=== PATIENT | male | born 1950 | race Caucasian/White ===

== ENCOUNTER 2016-08-26 15:19 | Inpatient (IN) | payer OTHER ==
[~2016-08-26] VITALS: Ht 170.2 cm; Wt 92.7 kg
[2016-08-26 15:23] VITALS: BP 135/81; PULSE 85; RESP 15; TEMP 98.1; O2SAT 96
[2016-08-26] MEDS ORDERED: ASPI81CH CHEW (15:36)
[2016-08-26] MEDS ORDERED: LISI-515 PO (15:36)
[2016-08-26] MEDS ORDERED: LIPI80TA PO (15:36)
[2016-08-26] MEDS ORDERED: CARV12.52 PO (15:36)
[2016-08-26] MEDS ORDERED: SODIUM CHLOR 0.9% 1000 ML INJ 1,000 ML IV SCH (15:38)
[2016-08-26] MEDS ORDERED: SODIUM CHLORIDE 0.9% FLUSH 10 ML FLUSH IV FLUSH PRN ×2 (15:45→18:30)
[2016-08-26] MEDS ORDERED: ONDANSETRON HCL 4 MG/2 ML VIAL IVP ONE (15:45)
[2016-08-26] MEDS ORDERED: MORPHINE SULFATE 4 MG/ML INJ IV PUSH ONE (15:45)
--- NOTE | 2016-08-26 15:55 | PD ---
HPI Chief Complaint: Abdominal Pain Time Seen by Provider: 15:33 Travel History International Travel<30 days: No Contact w/Intl Traveler<30days: No Traveled to known affect area: No History of Present Illness HPI Patient is a 66-year-old male who presents to emergency with complaints of abdominal pain. Patient reports that he has been having increased lower abdominal pain since yesterday morning with a few episodes of n/v yesterday. Patient denies fevers or chills, reports that he did have an episode of nauseous and vomiting today though he reports overall decreased oral intake due to the pain. Patient reports that he has had history of diverticulitis in the past, reports that symptoms feel similar to that in the past. Reports that he did have a "small" bowel movement this morning. Patient reports that he has seen a GI doctor in the past and did have a colonscopy a few years ago which showed a polyp. Reports that he is due for another colonoscopy in October. PFSH Past Medical History High Cholesterol: Yes Hypertension: Yes ?: Not Past Surgical History Cardiac Surgery: Yes (OPEN HEART) Social History Alcohol Use: Yes Tobacco Use: No Substance Use: No Allergies-Medications (Allergen,Severity, Reaction): Coded Allergies: No Known Allergies (Unverified , 08/26/16) Reported Meds & Prescriptions Reported Meds & Active Scripts Active Reported Aspirin 81 Mg Chew 81 Mg CHEW DAILY Lipitor (Atorvastatin Calcium) 80 Mg Tab 80 Mg PO HS Carvedilol 12.5 Mg Tab 12.5 Mg PO BID Lisinopril 20 Mg Tab 20 Mg PO DAILY Review of Systems General / Constitutional: No: Fever Eyes: No: Visual changes HENT: No: Headaches Cardiovascular: No: Chest Pain or Discomfort Respiratory: No: Shortness of Breath Gastrointestinal: Positive: Nausea, Vomiting, Abdominal Pain, No: Diarrhea, Constipation Genitourinary: No: Dysuria Musculoskeletal: No: Pain Skin: No Rash Neurologic: No: Weakness Psychiatric: No: Depression Endocrine: No: Polydipsia Hematologic/Lymphatic: No: Easy Bruising Physical Exam Narrative GENERAL: NAD, nontoxic SKIN: Focused skin assessment warm/dry. HEAD: Atraumatic. Normocephalic. EYES: Pupils equal and round. No scleral icterus. No injection or drainage. ENT: No nasal bleeding or discharge. Mucous membranes pink and moist. NECK: Trachea midline. No JVD. CARDIOVASCULAR: Regular rate and rhythm. No murmur appreciated. RESPIRATORY: No accessory muscle use. Clear to auscultation. Breath sounds equal bilaterally. GASTROINTESTINAL: Abdomen soft, tenderness to lower abdomen with no rebound or guarding MUSCULOSKELETAL: No obvious deformities. No clubbing. No cyanosis. No edema. NEUROLOGICAL: Awake and alert. No obvious cranial nerve deficits. Motor grossly within normal limits. Normal speech. PSYCHIATRIC: Appropriate mood and affect; insight and judgment normal. Data Data Last Documented VS Vital Signs Date Time Temp Pulse Resp B/P Pulse Ox O2 Delivery O2 Flow Rate FiO2 08/26/16 16:50 69 20 107/68 97 08/26/16 15:23 98.1 Orders Complete Blood Count With Diff (08/26/16 15:38) Comprehensive Metabolic Panel (08/26/16 15:38) Lipase (08/26/16 15:38) Prothrombin Time / Inr (Pt) (08/26/16 15:38) Act Partial Throm Time (Ptt) (08/26/16 15:38) Urinalysis - C+S If Indicated (08/26/16 15:38) Ct Abd/Pel W Iv Contrast(Rout) (08/26/16 15:38) Iv Access Insert/Monitor (08/26/16 15:38) Morphine Inj (Morphine Inj) (08/26/16 15:45) Ondansetron Inj (Zofran Inj) (08/26/16 15:45) Sodium Chlor 0.9% 1000 Ml Inj (Ns 1000 M (08/26/16 15:38) Sodium Chloride 0.9% Flush (Ns Flush) (08/26/16 15:45) Iohexol 350 Inj (Omnipaque 350 Inj) (08/26/16 16:41) Labs Laboratory Tests Test 08/26/16 15:45 White Blood Count 9.5 TH/MM3 Red Blood Count 5.33 MIL/MM3 Hemoglobin 15.8 GM/DL Hematocrit 48.1 % Mean Corpuscular Volume 90.3 FL Mean Corpuscular Hemoglobin 29.6 PG Mean Corpuscular Hemoglobin 32.8 % Concent Red Cell Distribution Width 11.9 % Platelet Count 179 TH/MM3 Mean Platelet Volume 8.5 FL Neutrophils (%) (Auto) 75.1 % Lymphocytes (%) (Auto) 15.5 % Monocytes (%) (Auto) 8.2 % Eosinophils (%) (Auto) 0.3 % Basophils (%) (Auto) 0.9 % Neutrophils # (Auto) 7.1 TH/MM3 Lymphocytes # (Auto) 1.5 TH/MM3 Monocytes # (Auto) 0.8 TH/MM3 Eosinophils # (Auto) 0.0 TH/MM3 Basophils # (Auto) 0.1 TH/MM3 CBC Comment DIFF FINAL Differential Comment Prothrombin Time 11.1 SEC Prothromb Time International 1.0 RATIO Ratio Activated Partial 26.2 SEC Thromboplast Time Urine Collection Type CLEAN CATCH Urine Color DARK-YELLOW Urine Turbidity CLEAR Urine pH 5.5 Urine Specific [place] 1.035 Urine Protein 30 mg/dL Urine Glucose (UA) 1000 OR GREATER mg/dL Urine Ketones 15 mg/dL Urine Occult Blood NEG Urine Nitrite NEG Urine Bilirubin NEG Urine Leukocyte Esterase NEG Urine WBC 0-2 /hpf Microscopic Urinalysis Comment CULT NOT INDICATED Sodium Level 134 MEQ/L Potassium Level 4.3 MEQ/L Chloride Level 99 MEQ/L Carbon Dioxide Level 23.3 MEQ/L Anion Gap 12 MEQ/L Blood Urea Nitrogen 23 MG/DL Creatinine 0.88 MG/DL Estimat Glomerular Filtration 87 ML/MIN Rate Random Glucose 268 MG/DL Calcium Level 9.5 MG/DL Total Bilirubin 1.1 MG/DL Aspartate Amino Transf 12 U/L (AST/SGOT) Alanine Aminotransferase 28 U/L (ALT/SGPT) Alkaline Phosphatase 39 U/L Total Protein 7.3 GM/DL Albumin 3.6 GM/DL Lipase 152 U/L [facility] Medical Decision Making Medical Screen Exam Complete: Yes Emergency Medical Condition: Yes Interpretation(s) Vital Signs Date Time Temp Pulse Resp B/P Pulse Ox O2 Delivery O2 Flow Rate FiO2 08/26/16 15:23 98.1 85 15 135/81 96 Differential Diagnosis Diverticulitis, colitis, gastroenteritis, UTI, appendicitis Narrative Course Patient is a 66-year-old male who presents to emergency room with complaints of lower abdominal pain which started yesterday morning. Patient reports that since yesterday morning, he has had increased lower abdominal pain and cramping , reports no fevers or chills, patient reports that he did have a normal bowel movement today. Patient reports that he did have an episode of nausea and vomiting prior to coming to the emergency room, reports history of diverticulitis in the remote past. Patient reports that he has had overall decreased oral intake for the past 48 hours secondary to this pain. Labs as well as CT of the abdomen and pelvis ordered. Plan to hydrate patient and give pain medications as well as antiemetics. Laboratory Tests Test 08/26/16 15:45 White Blood Count 9.5 TH/MM3 (4.0-11.0) Red Blood Count 5.33 MIL/MM3 (4.50-5.90) Hemoglobin 15.8 GM/DL (13.0-17.0) Hematocrit 48.1 % (39.0-51.0) Mean Corpuscular Volume 90.3 FL (80.0-100.0) Mean Corpuscular Hemoglobin 29.6 PG (27.0-34.0) Mean Corpuscular Hemoglobin 32.8 % Concent (32.0-36.0) Red Cell Distribution Width 11.9 % (11.6-17.2) Platelet Count 179 TH/MM3 (150-450) Mean Platelet Volume 8.5 FL (7.0-11.0) Neutrophils (%) (Auto) 75.1 % (16.0-70.0) Lymphocytes (%) (Auto) 15.5 % (9.0-44.0) Monocytes (%) (Auto) 8.2 % (0.0-8.0) Eosinophils (%) (Auto) 0.3 % (0.0-4.0) Basophils (%) (Auto) 0.9 % (0.0-2.0) Neutrophils # (Auto) 7.1 TH/MM3 (1.8-7.7) Lymphocytes # (Auto) 1.5 TH/MM3 (1.0-4.8) Monocytes # (Auto) 0.8 TH/MM3 (0-0.9) Eosinophils # (Auto) 0.0 TH/MM3 (0-0.4) Basophils # (Auto) 0.1 TH/MM3 (0-0.2) CBC Comment DIFF FINAL Differential Comment Prothrombin Time 11.1 SEC (9.8-11.6) Prothromb Time International 1.0 RATIO Ratio Activated Partial 26.2 SEC Thromboplast Time (24.3-30.1) Urine Collection Type CLEAN CATCH Urine Color DARK-YELLOW (YELLW/STRAW) Urine Turbidity CLEAR (CLEAR) Urine pH 5.5 (5.0-8.5) Urine Specific [place] 1.035 (1.002-1.035) Urine Protein 30 mg/dL (NEG-TRACE) Urine Glucose (UA) 1000 OR GREATER mg/dL (NEG) Urine Ketones 15 mg/dL (NEG) Urine Occult Blood NEG (NEG) Urine Nitrite NEG (NEG) Urine Bilirubin NEG (NEG) Urine Leukocyte Esterase NEG (NEG) Urine WBC 0-2 /hpf (0-5) Microscopic Urinalysis Comment CULT NOT INDICATED Sodium Level 134 MEQ/L (136-145) Potassium Level 4.3 MEQ/L (3.5-5.1) Chloride Level 99 MEQ/L (98-107) Carbon Dioxide Level 23.3 MEQ/L (21.0-32.0) Anion Gap 12 MEQ/L (5-15) Blood Urea Nitrogen 23 MG/DL (7-18) Creatinine 0.88 MG/DL (0.60-1.30) Estimat Glomerular Filtration 87 ML/MIN (>89) Rate Random Glucose 268 MG/DL (74-106) Calcium Level 9.5 MG/DL (8.5-10.1) Total Bilirubin 1.1 MG/DL (0.2-1.0) Aspartate Amino Transf 12 U/L (15-37) (AST/SGOT) Alanine Aminotransferase 28 U/L (12-78) (ALT/SGPT) Alkaline Phosphatase 39 U/L (45-117) Total Protein 7.3 GM/DL (6.4-8.2) Albumin 3.6 GM/DL (3.4-5.0) Lipase 152 U/L (73-393) wbc: 9.5 Hemoglobin 15.8 Hematocrit 48.1 Platelets 179 Sodium 134 Chloride 99 Potassium 4.3 BUN 23 Creatinine 0.88 Glucose 268 ua: glucose: 1000 or greater ketones: 15 pt with no hx of diabetes, reviewed with patient his elevated blood sugar as well as glucosuria. reports that he was home and had blood work done and reports "My doctor's called me about abnormal labs, I haven't been able to get a hold of them yet, it must have been my high blood sugars because diabetes runs in the family." Last Impressions Abdomen/Pelvis CT 08/26/16 9645 Signed Impressions: Service Date/Time: Friday, August 26, 2016 16:32 - CONCLUSION: 1. Findings are suspicious for small bowel obstruction. There is a transition in diameter which occurs in the lower or right lower quadrant. 2. Gallstones. 3. Bilateral large inguinal hernias. The free fluid extends into the right inguinal hernia. Ricardo Thao MD Patient denies hx of abdominal surgeries in the past, he does admit to having a small bowel movement this morning - reports that he normally has a few BM's per day. CT with suspicion for small bowel obstruction. NGT was not placed as patient is comfortable with no nausea or vomiting in ER. Call made to general surgery to review case Case reviewed with Dr. Herrera, patient with low risk for SBO as pt has never had general surgery to bowels in the past, patient with most like ileus. Plan to keep patient at [facility] for obs for monitoring. If patient progresses to n/v and worsening symptoms consistent with obstruction - will transfer to [facility] main case reviewed with dr. haile who accepts pt to service for obs Diagnosis Primary Impression: Abdominal pain Qualified Code: R10.30 - Lower abdominal pain Additional Impressions: Hyperglycemia Ileus, unspecified Admitting Information Admitting Physician Requests: Observation Patient Instructions: General Instructions, Narcotic given in the ED Additional Instructions: Please provide patient with a copy of his lab work and studies at discharge Please bring the copy of your lab work and studies to your doctor's office for follow up on all findings from today Please follow up with your primary care doctor in 2-3 days Your blood sugar was elevated today, please follow up with your primary care doctor as soon as possible for this Eleanor Lopes DO Aug 26, 2016 15:55
[2016-08-26 15:59] VITALS: BP 108/72; PULSE 98; RESP 20; O2SAT 98
[2016-08-26 16:05] LABS: AUTOMATED NEUTROPHIL # 7.1 TH/MM3 (1.8-7.7); BASOPHIL # 0.1 TH/MM3 (0-0.2); BASOPHIL % 0.9 % (0.0-2.0); EOSINOPHIL % 0.3 % (0.0-4.0); HEMATOCRIT 48.1 % (39.0-51.0); HEMO FLAGS DIFF FINAL; LYMPH % 15.5 % (9.0-44.0); LYMPHOCYTE # 1.5 TH/MM3 (1.0-4.8); MEAN CELL VOLUME 90.3 FL (80.0-100.0); MEAN CORPUSCULAR HEMOGLOBIN 29.6 PG (27.0-34.0); MEAN CORPUSCULAR HGB CONC 32.8 % (32.0-36.0); MONO % 8.2 % (0.0-8.0); NEUT % 75.1 % (16.0-70.0); PLATELET COUNT 179 TH/MM3 (150-450); RED BLOOD COUNT 5.33 MIL/MM3 (4.50-5.90); RED CELL DISTRIBUTION WIDTH 11.9 % (11.6-17.2); WHITE BLOOD COUNT 9.5 TH/MM3 (4.0-11.0)
[2016-08-26 16:12] LABS: CHLORIDE 99 MEQ/L (98-107); POTASSIUM 4.3 MEQ/L (3.5-5.1); SODIUM (NA) 134 MEQ/L (136-145)
[2016-08-26 16:13] LABS: BLOOD, URINE NEG (NEG); KETONE, URINE 15 mg/dL (NEG); NITRITE,URINE NEG (NEG); PH, URINE 5.5 (5.0-8.5)
[2016-08-26 16:16] LABS: APTT (PATIENT) 26.2 SEC (24.3-30.1); GLUCOSE,URINE 1000 OR GREATER mg/dL (NEG); PROTHROMBIN TIME - PATIENT 11.1 SEC (9.8-11.6)
[2016-08-26 16:17] LABS: ANION GAP 12 MEQ/L (5-15); BICARBONATE 23.3 MEQ/L (21.0-32.0); BLOOD UREA NITROGEN 23 MG/DL (7-18); METHOD OF COLLECTION CLEAN CATCH; URINE COLOR DARK-YELLOW (YELLW/STRAW)
[2016-08-26 16:18] LABS: COMMENT (UR) CULT NOT INDICATED; COMMENT2 (UR) MUCOUS PRESENT; CULTURE IF INDICATED CULT NOT INDICATED; WBC, URINE 0-2 /hpf (0-5)
[2016-08-26 16:20] LABS: ALT (GPT) 28 U/L (12-78); AST (GOT) 12 U/L (15-37); GLOMERULAR FILTRATION RATE 87 ML/MIN (>89)
[2016-08-26 16:21] LABS: TOTAL BILIRUBIN ADULT 1.1 MG/DL (0.2-1.0)
[2016-08-26 16:22] LABS: ALKALINE PHOSPHATASE 39 U/L (45-117)
[2016-08-26] MEDS ORDERED: IOHEXOL 350 MG/ML 10 ML VIAL (for RAD DIAG) IV ONE (16:41)
[2016-08-26 16:50] VITALS: BP 107/68; PULSE 69; RESP 20; O2SAT 97
--- NOTE | 2016-08-26 17:45 | RADHPO ---
EXAM DATE/TIME: 08/26/2016 16:32 [facility] COMPARISON: No previous studies available for comparison. INDICATIONS : Lower abdomen pain with nausea. IV CONTRAST: 95 cc Omnipaque 350 (iohexol) IV ORAL CONTRAST: No oral contrast ingested. RADIATION DOSE: 17.75 CTDIvol (mGy) MEDICAL HISTORY : Cardiovascular disease. Hypertension. SURGICAL HISTORY : CABG ENCOUNTER: Initial ACUITY: 1 day PAIN SCALE: 5/10 LOCATION: Bilateral low abdomen TECHNIQUE: Volumetric scanning of the abdomen and pelvis was performed. Using automated exposure control and ad justment of the mA and/or kV according to patient size, radiation dose was kept as low as reasonably achievable to obtain optimal diagnostic quality images. FINDINGS: LOWER LUNGS: The visualized lower lungs are clear. LIVER: There are multiple subcentimeter low density round lesions throughout left and right lobe of the live r characteristic of cysts. Multiple calcified gallstones. No dilation of the intra-extrahepatic earlene iary system. SPLEEN: Normal size without lesion. PANCREAS: Within normal limits. KIDNEYS: Normal in size and shape. There is no mass, stone or hydronephrosis. 2.1 cm cyst upper pole right k idney. No calcified stones. ADRENAL GLANDS: Within normal limits. VASCULAR: There is no aortic aneurysm. BOWEL/MESENTERY: Abnormal. There are multiple dilated loops of proximal and mid small bowel which measure up to 3.2 c m in thickness. The distal small bowel is not dilated. There are a few air-fluid levels, but most o f the dilated loops of small bowel are fluid-filled. The transition from dilated to nondilated loops occurs somewhere in the right lower quadrant, a specific transition point cannot be reliably identif ied. There are numerous diverticula throughout the entire colon. No radiographic evidence of divert iculitis. The there is a minimal amount of free fluid about the liver and spleen and a moderate amou nt of free fluid seen in the lower abdomen and pelvis. The free fluid extends into the right inguina l hernia. ABDOMINAL WALL: Within normal limits. RETROPERITONEUM: There is no lymphadenopathy. BLADDER: No wall thickening or mass. REPRODUCTIVE: Within normal limits. INGUINAL: There are bilateral inguinal hernias which are moderate in size. The superior inferior dimension of both inguinal hernias is in excess of 7 cm. The free fluid extends into the right hernia sac. There several loops of nondistended small bowel near the orifice of the right hernia, but did not extend i nto the hernia. MUSCULOSKELETAL: Within normal limits for patient age. CONCLUSION: 1. Findings are suspicious for small bowel obstruction. There is a transition in diameter which occu rs in the lower or right lower quadrant. 2. Gallstones. 3. Bilateral large inguinal hernias. The free fluid extends into the right inguinal hernia. Ricardo Thao MD on August 26, 2016 at 17:34 Board Certified Radiologist. This report was verified electronically.
[2016-08-26] MEDS ORDERED: MAGNESIUM HYDROXIDE SUSP 30 ML CUP PO PRN (18:30)
[2016-08-26] MEDS ORDERED: ACETAMINOPHEN 325 MG TAB PO PRN (18:30)
[2016-08-26] MEDS ORDERED: NALOXONE HCL 0.4 MG/ML AMP IV PRN (18:30)
[2016-08-26] MEDS: SODIUM CHLOR 0.9% 1000 ML INJ 1,000 ML IV SCH (19:08)
[2016-08-26 19:20] VITALS: BP 103/61; PULSE 64; RESP 18; TEMP 97.6; O2SAT 98
[2016-08-26] MEDS: MORPHINE SULFATE 4 MG/ML INJ IV PUSH PRN ×2 (19:47→23:07)
[2016-08-26] MEDS: ONDANSETRON HCL 4 MG/2 ML VIAL IVP PRN (19:53)
[2016-08-26 20:35] VITALS: BP 113/73
[2016-08-26 20:40] VITALS: BP 144/78; PULSE 57; RESP 20; TEMP 96.8; O2SAT 98
[2016-08-26] MEDS: SODIUM CHLORIDE 0.9% FLUSH 10 ML FLUSH IV FLUSH SCH (21:00)
[2016-08-26] MEDS: TEMAZEPAM 15 MG CAP PO PRN (23:07)
[2016-08-27 00:35] VITALS: BP 107/73; PULSE 57; RESP 18; TEMP 98; O2SAT 96
[2016-08-27] MEDS: SODIUM CHLOR 0.9% 1000 ML INJ 1,000 ML IV SCH ×2 (05:01→12:27)
[2016-08-27] MEDS: ONDANSETRON HCL 4 MG/2 ML VIAL IVP PRN ×2 (05:14→12:26)
[2016-08-27] MEDS: MORPHINE SULFATE 4 MG/ML INJ IV PUSH PRN ×2 (05:15→12:27)
[2016-08-27 07:25] LABS: AUTOMATED NEUTROPHIL # 5.5 TH/MM3 (1.8-7.7); BASOPHIL % 0.1 % (0.0-2.0); EOSINOPHIL # 0.1 TH/MM3 (0-0.4); EOSINOPHIL % 1.1 % (0.0-4.0); HEMO FLAGS DIFF FINAL; LYMPH % 15.4 % (9.0-44.0); LYMPHOCYTE # 1.2 TH/MM3 (1.0-4.8); MEAN CELL VOLUME 90.5 FL (80.0-100.0); MEAN CORPUSCULAR HEMOGLOBIN 30.1 PG (27.0-34.0); MEAN CORPUSCULAR HGB CONC 33.3 % (32.0-36.0); MONO % 10.9 % (0.0-8.0); NEUT % 72.5 % (16.0-70.0); PLATELET COUNT 135 TH/MM3 (150-450); RED BLOOD COUNT 4.86 MIL/MM3 (4.50-5.90); RED CELL DISTRIBUTION WIDTH 11.9 % (11.6-17.2); WHITE BLOOD COUNT 7.6 TH/MM3 (4.0-11.0)
[2016-08-27 07:34] LABS: POTASSIUM 3.9 MEQ/L (3.5-5.1)
[2016-08-27 07:53] LABS: BICARBONATE 25.6 MEQ/L (21.0-32.0)
[2016-08-27 08:00] VITALS: BP 125/84; PULSE 55; RESP 20; TEMP 96.5; O2SAT 98
--- NOTE | 2016-08-27 08:10 | HHI.HP ---
[facility] Non-Staff Admission Diagnosis Ileus Diagnoses: Chief Complaint: Lower abdominal pain, nausea, vomiting. Travel History International Travel<30 Days: No Contact w/Intl Traveler <30 Da: No Traveled to Known Affected Are: No History of Present Illness Mr. Nix is a pleasant 66 year old male with a history of CABG who presented to the ED on 08/26/2016 due to lower abdominal pain, nausea, vomiting that started on 08/24/2016 AM. Patient could not eat anything. He had coffee and water but he had nausea and vomiting. He denies having any fever, chills. He had small bowel movements which is not typical for him. night he passed gas but he has not passed gas since then. Yesterday he had a small bowel movement as well. He continues to have lower abdominal pain and no flatus. Today, he is able to keep small amount of water down. Denies any bladder habit changes. No chest pain, cough, shortness of breath, fever, chills. Review of Systems Except as stated in HPI: all other systems reviewed are Neg Past Family Social History Past Medical History CAD s/p CABG in 2007 Past Surgical History CABG in 2007 Cardiac stent 2011 Colonoscopy - last one in 2011 Reported Medications Aspirin 81 Mg Chew 81 Mg CHEW DAILY Lipitor (Atorvastatin Calcium) 80 Mg Tab 80 Mg PO HS Carvedilol 12.5 Mg Tab 12.5 Mg PO BID Lisinopril 20 Mg Tab 20 Mg PO DAILY Allergies: Coded Allergies: No Known Allergies (Unverified , 08/26/16) Family History Father - Diabetes. Social History Used to smoke before CABG in 2007, drinks alcohol occasionally. Physical Exam Vital Signs Vital Signs Date Time Temp Pulse Resp B/P Pulse Ox O2 Delivery O2 Flow Rate FiO2 08/27/16 05:20 18 08/27/16 00:35 98.0 57 18 107/73 96 08/26/16 20:40 96.8 57 20 144/78 98 08/26/16 20:35 65 18 113/73 97 08/26/16 19:20 97.6 64 18 103/61 98 Room Air 08/26/16 16:50 69 20 107/68 97 08/26/16 15:59 98 20 108/72 98 08/26/16 15:23 98.1 85 15 135/81 96 Physical Exam GENERAL: This is a well-nourished, well-developed patient, in no apparent distress. SKIN: No rashes, ecchymoses or lesions. Warm and dry. HEAD: Atraumatic. Normocephalic. No temporal or scalp tenderness. EYES: Pupils equal round and reactive. No injection or drainage. ENT: Nose without bleeding, purulent drainage or septal hematoma. Airway patent. NECK: Trachea midline. No lymphadenopathy. Supple, nontender, no meningeal signs. CARDIOVASCULAR: Regular rate and rhythm without murmurs, gallops, or rubs. No JVD. RESPIRATORY: Clear to auscultation. Breath sounds equal bilaterally. No wheezes , rales, or rhonchi. GASTROINTESTINAL: Abdomen distended, tender to palpation over the lower abdomen , hypoactive bowel sounds. MUSCULOSKELETAL: Extremities without clubbing, cyanosis, or edema. NEUROLOGICAL: Awake and alert. Cranial nerves II through XII intact. No focal neurological deficits. Normal speech. Laboratory Laboratory Tests Test 08/26/16 08/27/16 15:45 06:36 White Blood Count 9.5 7.6 Red Blood Count 5.33 4.86 Hemoglobin 15.8 14.7 Hematocrit 48.1 44.0 Mean Corpuscular Volume 90.3 90.5 Mean Corpuscular Hemoglobin 29.6 30.1 Mean Corpuscular Hemoglobin 32.8 33.3 Concent Red Cell Distribution Width 11.9 11.9 Platelet Count 179 135 Mean Platelet Volume 8.5 8.3 Neutrophils (%) (Auto) 75.1 72.5 Lymphocytes (%) (Auto) 15.5 15.4 Monocytes (%) (Auto) 8.2 10.9 Eosinophils (%) (Auto) 0.3 1.1 Basophils (%) (Auto) 0.9 0.1 Neutrophils # (Auto) 7.1 5.5 Lymphocytes # (Auto) 1.5 1.2 Monocytes # (Auto) 0.8 0.8 Eosinophils # (Auto) 0.0 0.1 Basophils # (Auto) 0.1 0.0 CBC Comment DIFF FINAL DIFF FINAL Differential Comment Prothrombin Time 11.1 Prothromb Time International 1.0 Ratio Activated Partial 26.2 Thromboplast Time Urine Collection Type CLEAN CATCH Urine Color DARK-YELLOW Urine Turbidity CLEAR Urine pH 5.5 Urine Specific [place] 1.035 Urine Protein 30 Urine Glucose (UA) 1000 OR GREATER Urine Ketones 15 Urine Occult Blood NEG Urine Nitrite NEG Urine Bilirubin NEG Urine Leukocyte Esterase NEG Urine WBC 0-2 Microscopic Urinalysis Comment CULT NOT INDICATED Sodium Level 134 136 Potassium Level 4.3 3.9 Chloride Level 99 103 Carbon Dioxide Level 23.3 25.6 Anion Gap 12 7 Blood Urea Nitrogen 23 21 Creatinine 0.88 0.66 Estimat Glomerular Filtration 87 122 Rate Random Glucose 268 192 Calcium Level 9.5 8.4 Total Bilirubin 1.1 Aspartate Amino Transf 12 (AST/SGOT) Alanine Aminotransferase 28 (ALT/SGPT) Alkaline Phosphatase 39 Total Protein 7.3 Albumin 3.6 Lipase 152 Result Diagram: 08/27/16 0636 08/27/16 0636 Imaging Last Impressions Abdomen/Pelvis CT 08/26/16 1538 Signed Impressions: Service Date/Time: Friday, August 26, 2016 16:32 - CONCLUSION: 1. Findings are suspicious for small bowel obstruction. There is a transition in diameter which occurs in the lower or right lower quadrant. 2. Gallstones. 3. Bilateral large inguinal hernias. The free fluid extends into the right inguinal hernia. Ricardo Thao MD Assessment and Plan Problem List: (1) Small bowel obstruction ICD Code: K56.69 Status: Acute (2) CAD (coronary artery disease) ICD Code: I25.10 Status: Acute (3) Hyperlipidemia ICD Code: E78.5 Status: Acute Assessment and Plan Mr. Nix is a pleasant 66 year old male with a history of CAD s/p CABG who presents to the ED on 08/26/2016 due to lower abdominal pain, nausea, vomiting. CT abd/pelvis indicated possible SBO. - Possible small bowel obstruction - Will continue IV fluid at 100cc/hour. - Morphine for pain - General surgery was contacted by ED. Non-operative management for now. - If patient has further N/V, we may need to insert NG tube. - CAD s/p CABG, stent placement. - Hyperlipidemia - Hypertension - Continue Aspirin 81mg, Lisinopril 20mg Qday, Carvedilol 12.5mg BID, Lipitor 80mg QHS. - Hyperglycemia - Patient is not on any diabetic medications. - Will get HbA1C - Start Levemir 5 units QHS and sliding scale insulin. Full code. SCDs. Will consider Lovenox if patient remains in the hospital for more than 48 hours. Elmer Bunch DO Aug 27, 2016 8:10 am
[2016-08-27] MEDS: SODIUM CHLORIDE 0.9% FLUSH 10 ML FLUSH IV FLUSH SCH ×2 (08:44→19:40)
[2016-08-27 12:00] VITALS: BP 127/79; PULSE 69; RESP 20; TEMP 97.1; O2SAT 96
[2016-08-27] MEDS ORDERED: DEXTROSE 50% IN WATER 50 ML VIAL(D50) IV PUSH PRN (12:45)
[2016-08-27] MEDS ORDERED: GLUCAGON 1 MG/ML VIAL OTHER PRN (12:45)
[2016-08-27 16:00] VITALS: BP 131/70; PULSE 61; RESP 20; TEMP 97.5; O2SAT 98
[2016-08-27] MEDS: INSULIN ASPART SUPPLEMENTAL SCALE SQ SCH ×2 (16:13→21:00)
[2016-08-27 20:00] VITALS: BP 120/80; PULSE 67; RESP 18; TEMP 97.3; O2SAT 96
[2016-08-27] MEDS ORDERED: INSULIN DETEMIR 100 UNITS/ML VIAL SQ SCH (21:00)
[2016-08-27] MEDS: ATORVASTATIN 40 MG TAB PO SCH (22:01)
[2016-08-27] MEDS: CARVEDILOL 12.5 MG TAB PO SCH (22:01)
[2016-08-28] VITALS: BP 137/82; PULSE 70; RESP 18; TEMP 99.5; O2SAT 96
[2016-08-28] MEDS: SODIUM CHLOR 0.9% 1000 ML INJ 1,000 ML IV SCH ×4 (00:16→21:07)
[2016-08-28] MEDS: ONDANSETRON HCL 4 MG/2 ML VIAL IVP PRN (01:27)
[2016-08-28] MEDS: INSULIN ASPART SUPPLEMENTAL SCALE SQ SCH ×4 (05:46→21:00)
[2016-08-28 08:00] VITALS: BP 138/81; PULSE 65; RESP 18; TEMP 98.1; O2SAT 96
[2016-08-28] MEDS: ASPIRIN 81 MG CHEW TAB CHEW SCH (09:00)
[2016-08-28] MEDS: LISINOPRIL 20 MG TAB PO SCH (09:00)
[2016-08-28] MEDS: CARVEDILOL 12.5 MG TAB PO SCH ×2 (09:00→21:07)
--- NOTE | 2016-08-28 10:13 | HHI.PR ---
Subjective Remarks Follow up for small bowel obstruction. Patient reports persistent abdominal pain. He also started to have nausea, vomiting since last night. No fever, chills. Objective Vitals Vital Signs Date Time Temp Pulse Resp B/P Pulse Ox O2 Delivery O2 Flow Rate FiO2 08/28/16 00:00 99.5 70 18 137/82 96 08/27/16 20:00 97.3 67 18 120/80 96 08/27/16 16:00 97.5 61 20 131/70 98 08/27/16 12:00 97.1 69 20 127/79 96 I/O 08/27/16 08/27/16 08/27/16 08/28/16 08/28/16 08/28/16 07:00 15:00 23:00 07:00 15:00 23:00 Intake Total 0 ml 240 ml 3627 ml Balance 0 ml 240 ml 3627 ml Intake Oral 0 ml 240 ml 240 ml IV Total 3387 ml # Voids 1 1 2 2 # Bowel Movements 0 0 Result Diagram: 08/27/16 0636 08/27/16 0636 Imaging Last Impressions Abdomen/Pelvis CT 08/26/16 1538 Signed Impressions: Service Date/Time: Friday, August 26, 2016 16:32 - CONCLUSION: 1. Findings are suspicious for small bowel obstruction. There is a transition in diameter which occurs in the lower or right lower quadrant. 2. Gallstones. 3. Bilateral large inguinal hernias. The free fluid extends into the right inguinal hernia. Ricardo Thao MD Objective Remarks GENERAL: Alert, NAD. SKIN: Warm and dry. HEAD: Normocephalic. EYES: No scleral icterus. No injection or drainage. NECK: Supple, trachea midline. No JVD or lymphadenopathy. CARDIOVASCULAR: Regular rate and rhythm without murmurs, gallops, or rubs. RESPIRATORY: Breath sounds equal bilaterally. No accessory muscle use. GASTROINTESTINAL: Abdomen soft, Tender to palpation, nondistended. MUSCULOSKELETAL: No cyanosis, or edema. BACK: Nontender without obvious deformity. No CVA tenderness. Procedures None. A/P Problem List: (1) Small bowel obstruction ICD Code: K56.69 Status: Acute (2) CAD (coronary artery disease) ICD Code: I25.10 Status: Acute (3) Hyperlipidemia ICD Code: E78.5 Status: Acute Assessment and Plan Mr. Nix is a pleasant 66 year old male with a history of CAD s/p CABG who presents to the ED on 08/26/2016 due to lower abdominal pain, nausea, vomiting. CT abd/pelvis indicated possible SBO. - Possible small bowel obstruction - Will continue IV fluid at 100cc/hour. - Morphine for pain - General surgery was contacted by ED. Non-operative management for now. - Patient is having N/V, we will insert NG tube and put it on intermittent suction. - CAD s/p CABG, stent placement. - Hyperlipidemia - Hypertension - Continue Aspirin 81mg, Lisinopril 20mg Qday, Carvedilol 12.5mg BID, Lipitor 80mg QHS. - Hyperglycemia - Patient is not on any diabetic medications. - Will get HbA1C - Increase Levemir to 7 units QHS and sliding scale insulin. Full code. Lovenox. Elmer Bunch DO Aug 28, 2016 10:13 am
[2016-08-28 12:00] VITALS: BP 138/97; PULSE 68; RESP 18; TEMP 98; O2SAT 95
[2016-08-28] MEDS: ENOXAPARIN SODIUM 40 MG/0.4 ML SYRINGE SQ SCH (12:13)
[2016-08-28] MEDS: SODIUM CHLORIDE 0.9% FLUSH 10 ML FLUSH IV FLUSH SCH ×2 (12:14→21:00)
[2016-08-28 13:32] LABS: HEMOGLOBIN A1a 1.6 %; HEMOGLOBIN A1b 1.1 %; HEMOGLOBIN Ao 76.6 %; HEMOGLOBIN LA1C 2.2 %; HEMOGLOBIN P3 4.4 %
[2016-08-28 16:00] VITALS: BP 137/81; PULSE 66; RESP 18; TEMP 98; O2SAT 96
[2016-08-28 20:00] VITALS: BP 152/85; PULSE 81; RESP 20; TEMP 98.5; O2SAT 94
[2016-08-28] MEDS: ATORVASTATIN 40 MG TAB PO SCH (21:07)
[2016-08-28] MEDS: INSULIN DETEMIR 100 UNITS/ML VIAL SQ SCH (21:11)
[2016-08-29] VITALS: BP 148/82; PULSE 80; RESP 18; TEMP 98.5; O2SAT 95
[2016-08-29] MEDS: MORPHINE SULFATE 4 MG/ML INJ IV PUSH PRN ×3 (00:46→23:25)
[2016-08-29] MEDS: SODIUM CHLOR 0.9% 1000 ML INJ 1,000 ML IV SCH (06:10)
[2016-08-29] MEDS: INSULIN ASPART SUPPLEMENTAL SCALE SQ SCH ×4 (06:20→20:18)
[2016-08-29] MEDS: SODIUM CHLORIDE 0.9% FLUSH 10 ML FLUSH IV FLUSH SCH ×2 (08:38→20:10)
[2016-08-29] MEDS: CARVEDILOL 12.5 MG TAB PO SCH ×2 (08:38→20:10)
[2016-08-29] MEDS: ASPIRIN 81 MG CHEW TAB CHEW SCH (08:38)
[2016-08-29] MEDS: LISINOPRIL 20 MG TAB PO SCH (08:38)
--- NOTE | 2016-08-29 08:47 | HHI.PR ---
Subjective Remarks Follow up for SBO. Patient is on NG tube suction. No improvement yet. No flatus or BM. No fever, chills. He has been eating ice chips and drinking sips of water. Objective Vitals Vital Signs Date Time Temp Pulse Resp B/P Pulse Ox O2 Delivery O2 Flow Rate FiO2 08/29/16 00:00 98.5 80 18 148/82 95 08/28/16 20:00 98.5 81 20 152/85 94 08/28/16 16:00 98.0 66 18 137/81 96 08/28/16 12:00 98.0 68 18 138/97 95 I/O 08/28/16 08/28/16 08/28/16 08/29/16 08/29/16 08/29/16 07:00 15:00 23:00 07:00 15:00 23:00 Intake Total 3627 ml 1547 ml 1676 ml Output Total 750 ml 1430 ml Balance 3627 ml 797 ml 246 ml Intake Oral 240 ml 840 ml IV Total 3387 ml 1547 ml 836 ml Output Urine Total 580 ml Gastric Drainage Total 750 ml 850 ml # Voids 2 # Bowel Movements 0 0 Result Diagram: 08/27/16 0636 08/27/16 0636 Imaging Last Impressions Abdomen/Pelvis CT 08/26/16 1538 Signed Impressions: Service Date/Time: Friday, August 26, 2016 16:32 - CONCLUSION: 1. Findings are suspicious for small bowel obstruction. There is a transition in diameter which occurs in the lower or right lower quadrant. 2. Gallstones. 3. Bilateral large inguinal hernias. The free fluid extends into the right inguinal hernia. Ricardo Thao MD Objective Remarks GENERAL: Alert, NAD. SKIN: Warm and dry. HEAD: Normocephalic. EYES: No scleral icterus. No injection or drainage. NECK: Supple, trachea midline. No JVD or lymphadenopathy. CARDIOVASCULAR: Regular rate and rhythm without murmurs, gallops, or rubs. RESPIRATORY: Breath sounds equal bilaterally. No accessory muscle use. GASTROINTESTINAL: Abdomen soft, Tender to palpation, nondistended. MUSCULOSKELETAL: No cyanosis, or edema. BACK: Nontender without obvious deformity. No CVA tenderness. Procedures None. A/P Problem List: (1) Small bowel obstruction ICD Code: K56.69 Status: Acute (2) CAD (coronary artery disease) ICD Code: I25.10 Status: Acute (3) Hyperlipidemia ICD Code: E78.5 Status: Acute Assessment and Plan Mr. Nix is a pleasant 66 year old male with a history of CAD s/p CABG who presents to the ED on 08/26/2016 due to lower abdominal pain, nausea, vomiting. CT abd/pelvis indicated possible SBO. - Possible small bowel obstruction - Will continue IV fluid at 100cc/hour. - Morphine for pain - Continue NG tube on intermittent suction. Will consult Surgery for further input. Discussed with Dr. Junior. - If surgical intervention is indicated, we may have to transfer patient to the main hospital. - CAD s/p CABG, stent placement. - Hyperlipidemia - Hypertension - Continue Aspirin 81mg, Lisinopril 20mg Qday, Carvedilol 12.5mg BID, Lipitor 80mg QHS. - Hyperglycemia - Patient is not on any diabetic medications. - HbA1C 11.9. - Continue Levemir 7 units QHS and sliding scale insulin. Full code. Lovenox. Elmer Bunch DO Aug 29, 2016 8:47 am
[2016-08-29 08:59] VITALS: BP 119/78; PULSE 60; RESP 20; TEMP 95.6; O2SAT 94
[2016-08-29] MEDS: ENOXAPARIN SODIUM 40 MG/0.4 ML SYRINGE SQ SCH (11:22)
[2016-08-29 12:00] VITALS: BP 117/77; PULSE 66; RESP 20; TEMP 98.1; O2SAT 93
[2016-08-29 16:00] VITALS: BP 115/75; PULSE 66; RESP 20; TEMP 98.5; O2SAT 95
[2016-08-29 20:00] VITALS: BP 149/95; PULSE 67; RESP 18; TEMP 98; O2SAT 91
--- NOTE | 2016-08-29 20:01 | PD.CAR.PN ---
CVT Progress Note Subjective/Hospital Course: Patient evaluated Full consult dictated Patient does have high-grade small bowel obstruction and an absence of previous surgery is likely an omental adhesions or internal hernia Patient has been sin here ce Sunday. If patient doesn't resolve by tomorrow, he will need to be transferred to main hospital for surgery We will see LOLA tomorrow Thanks Adolfo Objective: Vital Signs Date Time Temp Pulse Resp B/P Pulse Ox O2 Delivery O2 Flow Rate FiO2 08/29/16 16:00 98.5 66 20 115/75 95 08/29/16 12:00 98.1 66 20 117/77 93 08/29/16 08:59 95.6 60 20 119/78 94 08/29/16 00:00 98.5 80 18 148/82 95 Result Diagram: 08/27/16 0636 08/27/16 0636 Samanta Junior MD Aug 29, 2016 20:01
[2016-08-29] MEDS: INSULIN DETEMIR 100 UNITS/ML VIAL SQ SCH (20:11)
[2016-08-29] MEDS: ATORVASTATIN 40 MG TAB PO SCH (20:11)
--- NOTE | 2016-08-29 21:08 | MB ---
cc: SAMANTA PUCKETT MD DATE OF CONSULTATION 08/29/[address] Puckett, surgery. REFERRING PHYSICIAN Dr. Bunch, medicine. REASON FOR CONSULTATION Small bowel obstruction, abdominal pain. HISTORY OF THE PRESENT ILLNESS This 66-year-old male presents to the emergency room on 26 of August with history of abdominal pain, nausea, vomiting that started on last week. The patient could not keep anything down, and no fever or chills. Had a small bowel movement but that was it. The patient was admitted, worked up, was diagnosed with small bowel obstruction. A nasogastric tube was placed, hence the consultation. PAST SURGICAL HISTORY Is that of: 1. Coronary artery bypass graft in 2007. 2. Coronary artery stenting in 2011. 3. He did have a colonoscopy in 2011 which was normal. MEDICATIONS The patient is only a few medications. ALLERGIES No allergies. SOCIAL HISTORY He used to smoke but drinks socially. PHYSICAL EXAMINATION GENERAL: Reveals a pleasant 66-year-old gentleman. HEENT: Normocephalic. No trauma to the head. Pupils equally reactive. Extraocular muscles intact. NECK: Supple. Bilateral carotid pulses. No bruits. CHEST: Clear bilateral breath sounds. HEART: Regular rhythm. ABDOMEN: Soft, distended. Hypoactive bowel sounds interspersed with hyper peristaltic rushes which is also associated with some pain. No masses are noted. No rebound or guarding is noted. No focal tenderness that would indicate ischemia of the bowel. Groins are normal. The patient does not have a hernia. EXTREMITIES: Within normal limits with palpable proximal and distal pulses. No vascular deficit. BACK: Normal. IMPRESSION AND RECOMMENDATIONS This gentleman has a high-grade small bowel obstruction and the cause of it is elusive. The patient never had abdominal surgery. However he does have a small scar supraumbilical from something that was done while he had open heart surgery. I am not sure what that is from but does not look like something that to do with his bowel obstruction at this point. Patients who present with small bowel obstruction in the absence of previous surgery most commonly still have adhesions either from an internal hernia or perhaps a volvulated omentum, hole in the omentum or such. Of course there is always a chance the patient can have unrecognized neoplasm but does not look this way in this gentleman. Considering that he has not opened up for the last four days, chances of this resolving are small. We will repeat the KUB tomorrow and if that still shows obstruction and the patient is clinically obstructed, then he will have to be transferred to the main hospital and have surgery. I thank you much for the referral. I will continue to follow the patient with you. Samanta MOLINA/EMERALD /8:09 PM /8:53 PM
[2016-08-30] VITALS: BP 138/83; PULSE 65; RESP 18; TEMP 97.9; O2SAT 93
[2016-08-30] MEDS: SODIUM CHLOR 0.9% 1000 ML INJ 1,000 ML IV SCH ×3 (02:54→22:07)
--- NOTE | 2016-08-30 04:52 | RADHPO ---
EXAM DATE/TIME: 08/30/2016 04:16 [facility] COMPARISON: No previous studies available for comparison. INDICATIONS : Abdominal pain. MEDICAL HISTORY : Cardiovascular disease. Hypertension. SURGICAL HISTORY : CABG. ENCOUNTER: Initial ACUITY: 1 day PAIN SCORE: 8/10 LOCATION: all quadrants. FINDINGS: Supine view of the abdomen was performed. There is an NG tube in stomach. There are multiple moderate ly dilated loops of small bowel throughout the mid abdomen. This pattern consisting with a distal sma ll bowel obstruction. The colon is nondilated. There is some stool in the colon. The lung bases are g rossly clear. There are degenerative changes of the lumbar spine.. CONCLUSION: Multiple moderately dilated loops of small bowel characteristic of the distal small bowel obstruction . Rick Oshea MD on August 30, 2016 at 4:49 Board Certified Radiologist. This report was verified electronically.
[2016-08-30] MEDS: INSULIN ASPART SUPPLEMENTAL SCALE SQ SCH ×4 (06:26→21:32)
[2016-08-30 08:12] VITALS: BP 143/85; PULSE 67; RESP 18; TEMP 96.8; O2SAT 94
[2016-08-30] MEDS: LISINOPRIL 20 MG TAB PO SCH (09:18)
[2016-08-30] MEDS: CARVEDILOL 12.5 MG TAB PO SCH ×2 (09:18→21:33)
[2016-08-30] MEDS: ASPIRIN 81 MG CHEW TAB CHEW SCH (09:18)
[2016-08-30] MEDS: SODIUM CHLORIDE 0.9% FLUSH 10 ML FLUSH IV FLUSH SCH ×2 (09:19→21:33)
--- NOTE | 2016-08-30 09:30 | HHI.PR ---
Subjective Remarks Follow up for SBO. Patient is doing better. Thirty minuets after he had KUB done , he had bowel movement. He is also passing flatus. No fever, chills. NG tube in place on intermittent suction. Objective Vitals Vital Signs Date Time Temp Pulse Resp B/P Pulse Ox O2 Delivery O2 Flow Rate FiO2 08/30/16 08:12 96.8 67 18 143/85 94 08/30/16 00:00 97.9 65 18 138/83 93 08/29/16 20:00 98.0 67 18 149/95 91 08/29/16 16:00 98.5 66 20 115/75 95 08/29/16 12:00 98.1 66 20 117/77 93 I/O 08/29/16 08/29/16 08/29/16 08/30/16 08/30/16 08/30/16 07:00 15:00 23:00 07:00 15:00 23:00 Intake Total 1676 ml 0 ml 1412 ml 1449 ml Output Total 1430 ml 1200 ml 550 ml Balance 246 ml 0 ml 212 ml 899 ml Intake Oral 840 ml 0 ml 560 ml IV Total 836 ml 1412 ml 889 ml Output Urine Total 580 ml Gastric Drainage Total 850 ml 1200 ml 550 ml # Voids 1 1 # Bowel Movements 0 1 Result Diagram: 08/27/16 0636 08/27/16 0636 Imaging Last Impressions Abdomen X-Ray 08/30/16 0600 Signed Impressions: Service Date/Time: Tuesday, August 30, 2016 04:16 - CONCLUSION: Multiple moderately dilated loops of small bowel characteristic of the distal small bowel obstruction. Rick Oshea MD Abdomen/Pelvis CT 08/26/16 1538 Signed Impressions: Service Date/Time: Friday, August 26, 2016 16:32 - CONCLUSION: 1. Findings are suspicious for small bowel obstruction. There is a transition in diameter which occurs in the lower or right lower quadrant. 2. Gallstones. 3. Bilateral large inguinal hernias. The free fluid extends into the right inguinal hernia. Ricardo Thao MD Objective Remarks GENERAL: Alert, NAD. SKIN: Warm and dry. HEAD: Normocephalic. EYES: No scleral icterus. No injection or drainage. NECK: Supple, trachea midline. No JVD or lymphadenopathy. CARDIOVASCULAR: Regular rate and rhythm without murmurs, gallops, or rubs. RESPIRATORY: Breath sounds equal bilaterally. No accessory muscle use. GASTROINTESTINAL: Abdomen soft, mild tenderness to palpation, nondistended. More bowel sound today compared to yesterday. MUSCULOSKELETAL: No cyanosis, or edema. BACK: Nontender without obvious deformity. No CVA tenderness. Procedures None. A/P Problem List: (1) Small bowel obstruction ICD Code: K56.69 Status: Acute (2) CAD (coronary artery disease) ICD Code: I25.10 Status: Acute (3) Hyperlipidemia ICD Code: E78.5 Status: Acute Assessment and Plan Mr. Nix is a pleasant 66 year old male with a history of CAD s/p CABG who presents to the ED on 08/26/2016 due to lower abdominal pain, nausea, vomiting. CT abd/pelvis indicated possible SBO. - Possible small bowel obstruction - Will continue IV fluid at 100cc/hour. - Morphine for pain - Continue NG tube on intermittent suction. - KUB this morning shows SBO. Discussed with Dr. Junior. - Since patient had a BM and passing flatus, we will not transfer patient to the main hospital. - Dr. Mata will continue to follow patient in [place]. - May try Clear liquid this afternoon or evening. If he tolerates diet, we may be able to d/c NG tube and possible home tomorrow. - CAD s/p CABG, stent placement. - Hyperlipidemia - Hypertension - Continue Aspirin 81mg, Lisinopril 20mg Qday, Carvedilol 12.5mg BID, Lipitor 80mg QHS. - Hyperglycemia - Patient is not on any diabetic medications. - HbA1C 11.9. - Continue Levemir 7 units QHS and sliding scale insulin. Full code. Lovenox. Elmer Bunch DO Aug 30, 2016 9:30 am
[2016-08-30] MEDS: ENOXAPARIN SODIUM 40 MG/0.4 ML SYRINGE SQ SCH (11:53)
[2016-08-30 12:58] VITALS: BP 120/77; PULSE 86; RESP 18; TEMP 97; O2SAT 94
--- NOTE | 2016-08-30 14:28 | PD.CAR.PN ---
CVT Progress Note Subjective/Hospital Course: Patient evaluated Full consult dictated Patient does have high-grade small bowel obstruction and an absence of previous surgery is likely an omental adhesions or internal hernia Patient has been sin here ce Sunday. If patient doesn't resolve by tomorrow, he will need to be transferred to main hospital for surgery We will see LOLA tomorrow Edwardo Mata 08/30/[address] Bunch Patient since the KUB has passed lots of gas and had 2 bowel movements Decompressed at this time The NG tube and start feeding patient by mouth see how he does If patient does well patient can be discharged tomorrow on progression of oral diet and the patient becomes nauseous starts vomiting again then he'll need to be transferred to the main hospital and undergo lysis of adhesions Either way once patient is well he will need repeated colonoscopy as an outpatient Objective: Vital Signs Date Time Temp Pulse Resp B/P Pulse Ox O2 Delivery O2 Flow Rate FiO2 08/30/16 12:58 97.0 86 18 120/77 94 08/30/16 08:12 96.8 67 18 143/85 94 08/30/16 00:00 97.9 65 18 138/83 93 08/29/16 20:00 98.0 67 18 149/95 91 08/29/16 16:00 98.5 66 20 115/75 95 Result Diagram: 08/27/16 0636 08/27/16 0636 Samanta Junior MD Aug 30, 2016 14:28
[2016-08-30 16:29] VITALS: BP 116/83; PULSE 67; RESP 18; TEMP 96.6; O2SAT 93
[2016-08-30 20:00] VITALS: BP 138/76; PULSE 69; RESP 18; TEMP 95.8; O2SAT 96
[2016-08-30] MEDS: INSULIN DETEMIR 100 UNITS/ML VIAL SQ SCH (21:31)
[2016-08-30] MEDS: ATORVASTATIN 40 MG TAB PO SCH (21:33)
[2016-08-31] VITALS: BP 130/70; PULSE 81; RESP 18; TEMP 97.1; O2SAT 96
[2016-08-31] MEDS: INSULIN ASPART SUPPLEMENTAL SCALE SQ SCH ×4 (06:03→21:00)
[2016-08-31 08:00] VITALS: BP 120/78; PULSE 84; RESP 18; TEMP 97.9; O2SAT 97
[2016-08-31] MEDS: LISINOPRIL 20 MG TAB PO SCH (08:57)
[2016-08-31] MEDS: SODIUM CHLORIDE 0.9% FLUSH 10 ML FLUSH IV FLUSH SCH ×2 (08:57→21:23)
[2016-08-31] MEDS: ASPIRIN 81 MG CHEW TAB CHEW SCH (08:57)
[2016-08-31] MEDS: CARVEDILOL 12.5 MG TAB PO SCH ×2 (08:57→21:23)
--- NOTE | 2016-08-31 10:49 | HHI.PR ---
Subjective Remarks The patient was sitting up in a chair. He still complained of abdominal distention but he said no pain. He has been passing gas. He has been having bowel movements. He is tolerating a diet. He inquired about having a laxative. Discussed with nursing. Objective Vitals Vital Signs Date Time Temp Pulse Resp B/P Pulse Ox O2 Delivery O2 Flow Rate FiO2 08/31/16 08:00 97.9 84 18 120/78 97 08/31/16 00:00 97.1 81 18 130/70 96 08/30/16 20:00 95.8 69 18 138/76 96 08/30/16 16:29 96.6 67 18 116/83 93 08/30/16 12:58 97.0 86 18 120/77 94 I/O 08/30/16 08/30/16 08/30/16 08/31/16 08/31/16 08/31/16 07:00 15:00 23:00 07:00 15:00 23:00 Intake Total 1449 ml 1180 ml Output Total 550 ml 200 ml Balance 899 ml 980 ml Intake Oral 560 ml 480 ml IV Total 889 ml 700 ml Gastric Drainage Total 550 ml 200 ml # Voids 1 3 3 # Bowel Movements 1 3 Result Diagram: 08/27/16 0636 08/27/16 0636 Imaging Last Impressions Abdomen X-Ray 08/30/16 0600 Signed Impressions: Service Date/Time: Tuesday, August 30, 2016 04:16 - CONCLUSION: Multiple moderately dilated loops of small bowel characteristic of the distal small bowel obstruction. Rick Oshea MD Abdomen/Pelvis CT 08/26/16 1538 Signed Impressions: Service Date/Time: Friday, August 26, 2016 16:32 - CONCLUSION: 1. Findings are suspicious for small bowel obstruction. There is a transition in diameter which occurs in the lower or right lower quadrant. 2. Gallstones. 3. Bilateral large inguinal hernias. The free fluid extends into the right inguinal hernia. Ricardo Thao MD Objective Remarks GENERAL: Alert, NAD. SKIN: Warm and dry. HEAD: Normocephalic. EYES: No scleral icterus. No injection or drainage. NECK: Supple, trachea midline. No JVD or lymphadenopathy. CARDIOVASCULAR: Regular rate and rhythm without murmurs, gallops, or rubs. RESPIRATORY: Breath sounds equal bilaterally. No accessory muscle use. GASTROINTESTINAL: Abdomen soft, mildly distended, nontender. + BS. MUSCULOSKELETAL: No cyanosis, or edema. BACK: Nontender without obvious deformity. No CVA tenderness. PSYCH: Mood and affect appropriate. Procedures None. Medications and IVs Current Medications Medications (Trade) Dose Ordered Sig/Bruna Route Start Time Stop Time Status Last Admin (NS Flush) 2 ml UNSCH PRN IV FLUSH 08/26/16 18:30 (NS Flush) 2 ml BID IV FLUSH 08/26/16 21:00 08/31/16 08:57 (Tylenol) 650 mg Q4H PRN PO 08/26/16 18:30 (Zofran Inj) 4 mg Q6H PRN IVP 08/26/16 18:30 08/28/16 01:27 (Milk Of Magnesia Liq) 30 ml Q12H PRN PO 08/26/16 18:30 08/27/16 16:13 (Restoril) 15 mg HS PRN PO 08/26/16 18:30 08/26/16 23:07 (Narcan Inj) 0.4 mg UNSCH PRN IV 08/26/16 18:30 (Morphine Inj) 4 mg Q3H PRN IV PUSH 08/26/16 18:30 08/29/16 23:25 (Aspirin Chew) 81 mg DAILY CHEW 08/28/16 09:00 08/31/16 08:57 (Lipitor) 80 mg HS PO 08/27/16 21:00 08/30/16 21:33 (Coreg) 12.5 mg BID PO 08/27/16 21:00 08/31/16 08:57 (Prinivil) 20 mg DAILY PO 08/28/16 09:00 08/31/16 08:57 (D50w (Vial) Inj) 25 ml UNSCH PRN IV PUSH 08/27/16 12:45 (Glucagon Inj) 1 mg UNSCH PRN OTHER 08/27/16 12:45 (Levemir Inj) 7 units HS SQ 08/28/16 21:00 08/30/16 21:31 (Lovenox Inj) 40 mg Q24H SQ 08/28/16 11:00 08/30/16 11:53 A/P Problem List: (1) Small bowel obstruction ICD Code: K56.69 Status: Acute (2) CAD (coronary artery disease) ICD Code: I25.10 Status: Acute (3) Hyperlipidemia ICD Code: E78.5 Status: Acute Assessment and Plan Possible small bowel obstruction The pt presented to the ED with lower abdominal pain, nausea and vomiting. CT abd/pelvis indicated possible SBO. KUB also indicated SBO. Surgery consult appreciated. NG tube has been removed and the pt is tolerating a diet as well as having bowel movements. - bowel regimen. - ADAT. CAD S/p CABG, stent placement. - Continue Aspirin 81mg, Lisinopril 20mg Qday, Carvedilol 12.5mg BID, Lipitor 80mg QHS. DM2 Patient is not on any diabetic medications. HbA1C 11.9%. - Continue Levemir 7 units QHS and sliding scale insulin. - metformin on discharge. - coding educator, dietary consults requested. PPx: Lovenox. Discharge Planning Anticipate d/c in AM. Andres Webster DO Aug 31, 2016 10:49
[2016-08-31] MEDS ORDERED: MAGNESIUM CITRATE SOLN 300 ML BTL PO ONE (11:00)
[2016-08-31] MEDS: ENOXAPARIN SODIUM 40 MG/0.4 ML SYRINGE SQ SCH (11:24)
[2016-08-31 12:00] VITALS: BP 119/68; PULSE 65; RESP 18; TEMP 97.9; O2SAT 97
[2016-08-31 16:00] VITALS: BP 98/68; PULSE 73; RESP 18; TEMP 98.6; O2SAT 97
[2016-08-31 20:00] VITALS: BP 140/72; PULSE 84; RESP 20; TEMP 98.7; O2SAT 96
[2016-08-31] MEDS: INSULIN DETEMIR 100 UNITS/ML VIAL SQ SCH (21:00)
[2016-08-31] MEDS: ATORVASTATIN 40 MG TAB PO SCH (21:23)
[2016-09-01] VITALS: BP 116/71; PULSE 68; RESP 18; TEMP 98.2; O2SAT 96
[2016-09-01] MEDS: TEMAZEPAM 15 MG CAP PO PRN (00:16)
[2016-09-01] MEDS: INSULIN ASPART SUPPLEMENTAL SCALE SQ SCH (05:54)
[2016-09-01 08:00] VITALS: BP 122/76; PULSE 78; RESP 18; TEMP 97.8; O2SAT 92
[2016-09-01] MEDS ORDERED: METF500T PO (09:00)
--- NOTE | 2016-09-01 09:02 | HHI.DCPOC ---
Discharge Care Plan Diagnosis: (1) Abdominal pain (2) Small bowel obstruction (3) CAD (coronary artery disease) (4) Hyperlipidemia (5) Diabetes mellitus Goals to Promote Your Health * To prevent worsening of your condition and complications * To maintain your health at the optimal level Directions to Meet Your Goals Take your medications as prescribed Follow your dietary instruction Follow activity as directed Keep your appointments as scheduled Take your immunizations and boosters as scheduled If your symptoms worsen call your PCP, if no PCP go to Urgent Care Center or Emergency Room Smoking is Dangerous to Your Health. Avoid second hand smoke Call the 24-hour hour crisis hotline for domestic abuse at Andres Webster DO Sep 01, 2016 09:02
--- NOTE | 2016-09-01 09:09 | HHI.DS ---
Discharge Summary Admission Date Aug 29, 2016 at 08:49 Discharge Date: Sep 01, 2016 Admitting Diagnosis Ileus (1) Small bowel obstruction ICD Code: K56.69 Diagnosis: Principal (2) CAD (coronary artery disease) ICD Code: I25.10 (3) Hyperlipidemia ICD Code: E78.5 Procedures None. Brief History - From Admission Mr. Nix is a pleasant 66 year old male with a history of CABG who presented to the ED on 08/26/2016 due to lower abdominal pain, nausea, vomiting that started on 08/24/2016 AM. Patient could not eat anything. He had coffee and water but he had nausea and vomiting. He denies having any fever, chills. He had small bowel movements which is not typical for him. night he passed gas but he has not passed gas since then. Yesterday he had a small bowel movement as well. He continues to have lower abdominal pain and no flatus. Today, he is able to keep small amount of water down. Denies any bladder habit changes. No chest pain, cough, shortness of breath, fever, chills. Imaging Last Impressions Abdomen X-Ray 08/30/16 0600 Signed Impressions: Service Date/Time: Tuesday, August 30, 2016 04:16 - CONCLUSION: Multiple moderately dilated loops of small bowel characteristic of the distal small bowel obstruction. Rick Oshea MD Abdomen/Pelvis CT 08/26/16 1538 Signed Impressions: Service Date/Time: Friday, August 26, 2016 16:32 - CONCLUSION: 1. Findings are suspicious for small bowel obstruction. There is a transition in diameter which occurs in the lower or right lower quadrant. 2. Gallstones. 3. Bilateral large inguinal hernias. The free fluid extends into the right inguinal hernia. Ricardo Thao MD PE at Discharge GENERAL: Alert, NAD. SKIN: Warm and dry. HEAD: Normocephalic. EYES: No scleral icterus. No injection or drainage. NECK: Supple, trachea midline. No JVD or lymphadenopathy. CARDIOVASCULAR: Regular rate and rhythm without murmurs, gallops, or rubs. RESPIRATORY: Breath sounds equal bilaterally. No accessory muscle use. GASTROINTESTINAL: Abdomen soft, mildly distended, nontender. + BS. MUSCULOSKELETAL: No cyanosis, or edema. BACK: Nontender without obvious deformity. No CVA tenderness. PSYCH: Mood and affect appropriate. Pt update on day of discharge The patient said that he has been having bowel movements. He is tolerating a diet. He would like to go home. He said he met with the elementary educator. No acute complaints at this time. Discussed with nursing. Hospital Course Possible small bowel obstruction The pt presented to the ED with lower abdominal pain, nausea and vomiting. CT scan showed: Multiple moderately dilated loops of small bowel characteristic of the distal small bowel obstruction. CT scan showed: There is a transition in diameter which occurs in the lower or right lower quadrant; Gallstones; Bilateral large inguinal hernias; The free fluid extends into the right inguinal hernia. Surgery was consulted. NG tube was initially placed and has been successfully removed. The pt is tolerating a diet as well as having bowel movements. He was started on a bowel regimen.He will follow up with his PCP. DM2 Patient is not on any diabetic medications. HbA1C was 11.9%. He was started on Levemir 7 units QHS and sliding scale insulin. He met with the elementary educator. A dietary consult was also placed. The pt will be discharged on metformin and will follow up with his PCP. Pt Condition on Discharge: Stable Discharge Disposition: Discharge Home Discharge Time: > 30 minutes Discharge Instructions DIET: Follow Instructions for: Diabetic Diet Activities you can perform: Weight Bearing as Jacquelin Follow up Referrals: PCP Follow-up - 1 Week New Medications: Metformin (Metformin) 500 Mg Tab 500 MG PO BIDPC With meals Blood Sugar Management #60 Ref 0 TAB Continued Medications: Aspirin (Aspirin) 81 Mg Chew 81 MG CHEW DAILY Ref 0 TAB Atorvastatin (Lipitor) 80 Mg Tab 80 MG PO HS Cholesterol Management #30 Ref 0 TAB Carvedilol (Carvedilol) 12.5 Mg Tab 12.5 MG PO BID #60 Ref 0 TAB Lisinopril (Lisinopril) 20 Mg Tab 20 MG PO DAILY #30 Ref 0 TAB Additional Information Discharge time greater than 30 minutes. Andres Webster DO Sep 01, 2016 09:09
[2016-09-01] MEDS: ASPIRIN 81 MG CHEW TAB CHEW SCH (09:11)
[2016-09-01] MEDS: SODIUM CHLORIDE 0.9% FLUSH 10 ML FLUSH IV FLUSH SCH (09:12)
[2016-09-01] MEDS: LISINOPRIL 20 MG TAB PO SCH (09:12)
[2016-09-01] MEDS: CARVEDILOL 12.5 MG TAB PO SCH (09:12)
== END 2016-09-01 11:49 | disposition home or self-care (01) | DRG 390 ==
LOC: PHED 15:19 → PHEDA 18:14 → PH3A 20:42 → OBSVTOIN 08-29 08:49
PROVIDERS: ADMIT Hospitalist; ATTEND Hospitalist
DX: K56.60 Unspecified intestinal obstruction (principal); E11.65 Type 2 diabetes mellitus with hyperglycemia; I10 Essential (primary) hypertension; E78.00 Pure hypercholesterolemia, unspecified; K40.20 Bilateral inguinal hernia, without obstruction or gangrene, not specified as recurrent; I25.10 Atherosclerotic heart disease of native coronary artery without angina pectoris; K80.20 Calculus of gallbladder without cholecystitis without obstruction; E78.5 Hyperlipidemia, unspecified; Z95.5 Presence of coronary angioplasty implant and graft; Z95.1 Presence of aortocoronary bypass graft; Z87.891 Personal history of nicotine dependence; Z86.010 Personal history of colon polyps
CPT/HCPCS: 74000; 74177; 80048; 80053; 81001; 82948; 83036; 83690; 85025; 85610; 85730; 96361; 96374; 96375; G0378; J1650; J1815; J2270; J2405; J7030; Q9967